=== PATIENT | female | born 2000 | race Two or more races ===

== ENCOUNTER 2022-09-04 22:56 | Emergency (ER) | payer OTHER ==
[~2022-09-04] VITALS: Ht 157.5 cm; Wt 91.0 kg
[2022-09-05] MEDS ORDERED: PERTUSS(ACELL),DIPH,TET VAC/PF 0.5 ML SYRINGE IM. ONE (00:30)
[2022-09-05] MEDS ORDERED: IBUPROFEN 600 MG TABLET PO ONE (00:45)
[2022-09-05 01:33] VITALS: BP 107/56
== END 2022-09-05 01:34 | disposition home or self-care (01) ==
LOC: EMS 22:59
DX: F41.9 Anxiety disorder, unspecified (principal); E66.9 Obesity, unspecified; Y09 Assault by unspecified means
CPT/HCPCS: 90471; 90715; 99283